=== PATIENT | male | born 1935 | race Caucasian/White ===

== ENCOUNTER 2017-01-08 12:16 | Inpatient (IN) ==
[2017-01-08 14:17] LABS: URINE CULTURE NEEDED? NO; URINE SOURCE CLEAN CATCH
[2017-01-08 14:33] LABS: BASO% 0.1 % (0.0-0.8); HEMATOCRIT 38.4 % (42.0-52.0); HEMOGLOBIN 13.4 g/dL (14.0-18.0); IMM GRAN# 0.02 X1000 (0.0-0.04); IMM GRAN% 0.1 % (0.0-0.5); LYMPH# 0.38 X1000 (1.2-3.4); LYMPH% 2.5 % (20.5-51.1); MANUAL DIFF NEEDED? NO; MCH 32.2 PG (27-31); MCHC 34.9 g/dL (33-37); MCV 92.3 FL (81-99); MONO# 1.06 X1000 (0.11-0.59); MONO% 7.1 % (1.7-9.3); MPV 11.6 FL (7.4-10.4); NEUT% 90.2 % (42.2-75.2); PLT 86 X1000 (130-400); RBC 4.16 XMIL (4.7-6.1)
[2017-01-08 14:34] LABS: BILIRUBIN URINE LARGE (NEGATIVE); BLOOD URINE SMALL (NEGATIVE); COLOR ORANGE; GLUCOSE URINE NEGATIVE (NEGATIVE); LEUKOCYTES URINE NEGATIVE (NEGATIVE); NITRITE URINE NEGATIVE (NEGATIVE); PROTEIN URINE 70 mg/dL (NEGATIVE); SP GRAVITY URINE 1.027; TURBIDITY URINE HAZY (CLEAR); UROBILINOGEN URINE 3 mg/dL (NORMAL)
[2017-01-08 14:35] LABS: URINE MICRO REVIEW NEEDED? YES
[2017-01-08 14:39] LABS: UR EPITHELIAL CELLS <10 /HPF (<10); URINE BACTERIA NEGATIVE /HPF; URINE RBC <10 /HPF (<10); URINE WBC <10 /HPF (<10)
[2017-01-08 14:48] LABS: AGAP 15; ALKALINE PHOSPHATASE 305 U/L (32-122); AMYLASE 73 U/L (20-200); BUN 22 mg/dL (8-22); CALCIUM 8.6 mg/dL (8.8-10.2); CHLORIDE 101 mmol/L (98-107); COSMO 279; GOT 86 U/L (10-34); GPT 83 U/L (10-44); LIPASE 191 U/L (13-60); POTASSIUM 3.9 mmol/L (3.5-5.1); SODIUM 138 mmol/L (136-145); TCO2 22 mmol/L (25-35); TOTAL BILIRUBIN 10.69 mg/dL (0.20-1.00); TOTAL PROTEIN 6.3 g/dL (6.3-8.3)
[2017-01-08 14:54] LABS: URINE CASTS NONE SEEN; URINE CRYSTALS NONE SEEN; URINE SMALL ROUND CELLS NONE SEEN
--- NOTE | 2017-01-08 15:49 | Diag Imaging Result Doc PS360 ---
CT ABD/PELVIS W/ IV CONT ONLY - 01/08/2017 INDICATION: jaundice, flank pain, hx liver CA TECHNIQUE: A CT dose reduction protocol was used. COMPARISON: Ultrasound from 06/01/2012 FINDINGS: There is extensive linear atelectasis or scarring in the lung bases. There is also significant bronchiectasis in the lung bases most notably in the right lower lobe. There is a small hiatal hernia. There is extremely extensive calcification of the mitral valve annulus. Heart size is top normal. The liver is extremely atrophic with a very nodular contour suggesting cirrhosis. At the lateral surface of the right lobe superficially in the liver, there is a hypoenhancing masslike area measuring 3.2 x 1.5 cm. There are several heterogeneous densities in the gallbladder that are nonspecific. Some of these are calcified and some almost appear as enhancing soft tissue. There is moderate dilation of the common bile duct. There are some similar appearing dense objects in the distal common bile duct. Spleen size is slightly enlarged measuring 13.1 x 7 cm. The pancreas is atrophic. The kidneys and adrenals are normal. There is a small ventral hernia at the umbilicus containing some nonobstructed loops of small bowel. There are some surgical suture lines at the proximal transverse colon. There are some scattered diverticula of the sigmoid colon. No bowel obstruction or inflammation. There is a small amount of ascites. Urinary bladder, prostate, and rectum are normal. Advanced degenerative changes of the bones. There is a chronic fracture/deformity of L4. There is now much compression here. There is mild compression deformity of L3. No suspicious bony lesions. IMPRESSION: 1. Advanced cirrhosis. Small liver mass, nonspecific. 2. Multiple large densities in the gallbladder compatible with gallstones. 3. Large stones in the distal common bile duct with moderate dilation of the common bile duct. 4. Splenomegaly. Small amount of ascites. 5. Umbilical ventral hernia containing nonobstructed small bowel. 6. Diverticulosis coli. Electronically signed by Sang Monroe 01/08/2017 3:47 PM
[2017-01-08] MEDS ORDERED: MORPHINE IV ONE (16:02)
[2017-01-08] MEDS ORDERED: LEVAQUIN 750 MG/D5W 750 MG/150 ML IVPB IV ONE (16:10)
--- NOTE | 2017-01-08 16:21 | PROVIDER DOCUMENTATION ---
This chart was entered by Seema Lombardo Scribe, acting as scribe for Yunier Hughes MD. HPI-General Adult - General Chief Complaint: Flank Pain Stated Complaint: fever/kidney stones Time Seen by Provider: 01/08/17 13:10 Source: patient Allergies/Adverse Reactions: Patient Allergies Allergy/AdvReac Type Severity Reaction Status Date / Time Penicillins Allergy RASH Verified 01/08/17 13:04 Sulfa (Sulfonamide Allergy Unknown Verified 01/08/17 13:04 Antibiotics) Home Medications: Home Medication List Medication Instructions Recorded Confirmed Last Taken Type Furosemide [Lasix] 20 mg PO DAILY 01/08/17 01/08/17 01/06/17 06:00 History LISINOpril [Prinivil] 20 mg PO DAILY 01/08/17 01/08/17 01/07/17 06:00 History - History of Present Illness -Gen Adult Nature of Presenting Problems: Pt is a 81 yom who came to the ED with a cc of right flank pain. Pt reports that yesterday he was in [place] watching his grandsons graduation, when he stood up he had right flank pain. Pt reports he and his went to sleep and woke up still having flank pain. Pt the reports they drove home and went to see Dr. Barr. The pt reports that Dr. Barr told him he probably has kidney stones and scheduled him for a CT at 1:30 today. The pt reports that Dr. Barr told him if his fever spikes go straight to the ED. Pt has a hx of colon cancer and liver cancer. Location of Pain/Injury: reports: other (right flank) Pain Radiation: reports: no radiation Quality of Pain: reports: sharp Severity: reports: mild Onset/Duration: reports: 24 hours ago Timing: reports: still present Context/Activities at Onset: reports: none Modifying Factors: improves with: nothing Associated Symptoms: reports: denies symptoms Similar Symptoms Previously?: No Recently seen or treated by another doctor?: Yes Review of Systems - Adult - REVIEW OF SYSTEMS - ADULT Constitutional: reports: chills, fever. denies: fatique, weight loss Eyes: reports: no symptoms reported Ears, Nose, Mouth & Throat: denies: sinus problem, mouth/dental pain Cardiovascular: reports: no symptoms reported Respiratory: reports: no symptoms reported Gastrointestinal: reports: no symptoms reported Genitourinary: reports: flank pain (right), hematuria. denies: discharge, hesitency, urgency Musculoskeletal: denies: bone pain, neck pain Integumentary: reports: no symptoms reported Neurological: reports: no symptoms reported Psychiatric: reports: no symptoms reported Endocrine: reports: no symptoms reported Hematologic/Lymphatic: reports: no symptoms reported Allergic/Immunologic: reports: no symptoms reported All Other Systems: Reviewed and Negative Past History - Adult - PAST MEDICAL HISTORY-ADULT Review of Records: reports: Nursing Assessment Review Major Childhood Illnesses: reports: denies history Cardiovascular: reports: HTN Respiratory: reports: denies history Gastrointestinal: reports: denies history Obstetrical/Gynecological: reports: denies history Genitourinary: reports: denies history Musculoskeletal: reports: denies history Neurological: reports: denies history Endocrine/Immune: reports: denies history Other Conditions: reports: denies history - PRIOR SURGERIES/PROCEDURES Surgical/Procedure History: reports: colonoscopy - IMMUNIZATION STATUS Childhood Immunizations: See Nurse Assessment Flu Vaccine: See Nurse Assessment - FAMILY HISTORY Family History: reviewed, not pertinent Physical Exam-General - PHYSICAL EXAM-ADULT Initial Vital Signs Reviewed: Yes - CONSTITUTIONAL General Appearance: appears well, alert, no apparent distress - EYES Eyes: PERRL/EOMI, pink conjunctivae - HEAD, EARS, NOSE, MOUTH & THROAT HENMT: normocephalic/atraumatic, moist mucous membranes - NECK Neck: non-tender, full range of motion - RESPIRATORY Respiratory: chest non-tender, lungs clear, normal breath sounds - CARDIOVASCULAR Cardiovascular: normal peripheral pulses, systolic murmur (2/6) - GASTROINTESTINAL (ABDOMEN) Abdominal Exam: normal bowel sounds, non tender, soft - MUSCULOSKELETAL Back Exam: normal inspection, other (right flank pain) Extremity: normal range of motion, non-tender - SKIN Integumentary: warm/dry, jaundice (eyes) - NEUROLOGIC Neurologic: grossly normal - PSYCHIATRIC Psych/Mental Status: normal mood/affect, normal thought content, normal thought process, oriented x 3 Progress - PLAN OF CARE/RESULTS Progress/Plan/Lab Results: Vital Signs - 8 hr 01/08/17 12:35 Temperature 99.1 F Pulse Rate 98 H Respiratory Rate 22 Blood Pressure 113/63 O2 Sat by Pulse Oximetry 98 Result Diagrams: 01/08/17 14:01/08/17 14:05 - CONSULTS/PCP/HOSPITALIST Notification Time Discussed: 16:10 Consult Disposition: Admit Departure - Departure Time of Disposition Decision: 16:19 DIAGNOSIS: Choledocholithiasis with acute cholecystitis with obstruction Disposition: HOME 01 Certified Medical Emergency: Emergent Condition: Stable - Critical Care Note This patient required my direct & personal management of CC.: No This chart was documented by the indicated scribe, (Seema Lombardo Scribe) and accurately reflects the services I performed and decisions made by me, Yunier Hughes MD, as attested by the provider's signature.
[2017-01-08] MEDS ORDERED: TYLENOL PO PRN (17:03)
[2017-01-08] MEDS ORDERED: ZOFRAN IV PRN (17:03)
[2017-01-08 17:48] LABS: DIRECT BILIRUBIN 9.1 mg/dL (0.00-0.20)
--- NOTE | 2017-01-08 18:30 | HISTORY AND PHYSICAL ---
PCP: Dr. Barr. GI: Is Dr. Sen in [place]. PRESENTING COMPLAINT: Abdominal pain, fever and chills. HISTORY OF PRESENTING COMPLAINT: Mr. Griffin is a 81-year-old male with a history of cirrhosis of the liver, colon cancer and hypertension who started having some abdominal right upper quadrant to the back pain since yesterday initiated without any precipitating factor and then progressively just got worse to the point where he was not able to do anything because of excruciating intermittent pain 10/10 associated with some nausea. No vomiting. The patient went to see Dr. Barr yesterday and was given some pain medication and was told to come to the emergency department if his condition does not get any better. This morning he woke up and the pain got even worse so the decided to bring him to the emergency department. Now before they came according to the the patient was just shaking like chills. She checked the temperature. Initially it was 100.6. She rechecked it about 30 minutes later it was 101.6 and the 3rd time it was 102.8. That is when she decided to bring him to the emergency department. Upon presentation patient was evaluated, was found to have a white count of 14.96. A CT scan of the abdomen was done which showed advanced cirrhosis, large stones in the distal common bile duct with moderate dilation of the common bile duct. PAST MEDICAL HISTORY: 1. Hypertension. 2. History of heart murmur. 3. Cirrhosis. 4. HCC status post embolization. 5. Umbilical hernia. PAST SURGICAL HISTORY: 1. Colon cancer removal with primary anastomosis. 2. Embolization of HCC. ALLERGIES: Sulfa and questionable penicillins. HOME MEDICATIONS: Include. 1. Furosemide 20 mg daily. 2. Lisinopril 20 mg daily. FAMILY HISTORY: Noncontributory. SOCIAL HISTORY: Patient used to smoke couple years back, stopped smoking in 1954, also used to drink about 4-5 beers on daily basis, stopped about 10 years ago. That was after he got the diagnosis of cirrhosis. Currently lives with the . Denies any recreational drug use. REVIEW OF SYSTEMS: Fourteen point review of system conducted with the patient is unremarkable. Specifically patient denies any chest pain, short of breath. No diarrhea. The patient also denies any loss of weight and no changes in his appetite and no bowel movement changes. PHYSICAL EXAM: VITAL SIGNS: Blood pressure is 113/63, pulse of 98, respirations 22, temperature is 99.1 degrees. GENERAL: Mr. Griffin is a 81-year-old male. He is in bed. He is not in any remarkable distress. HEENT: Head is normocephalic and atraumatic. Neck is supple. I did not appreciate any JVD or no carotid bruit. Mucosa is pink and 2+ icteric. CHEST: Good air entry bilateral. No crepitations. No rhonchi. CARDIOVASCULAR: Regular rate and rhythm. There is about 2 to 3/6 murmur radiating to the carotid. ABDOMEN: Soft. Mildly tender in the right upper quadrant. Bowel sounds are present. There is an umbilical hernia defect noted and an old supraumbilical surgical scar consistent with previous GI surgery. EXTREMITIES: No pedal edema. PROJECT SCIENTIST: Patient is alert, is oriented x4. There is no focal neurological deficit. Sensation is intact. Motor is 5/5 in all extremities. Cranial nerves 2-12 are grossly examined and unremarkable. PSYCH: Patient has a very good demeanor, great insight and judgment. LABORATORY DATA: WBC is 14.96, hemoglobin is 13.4, platelet count of 86,000. Chemistry is reviewed. Sodium is 138, potassium is 3.9, chloride is 101, bicarb is 22, calcium is 8.6, total bilirubin is 10.69, AST is 86, ALT is 85, alkaline phosphatase 305, lipase is 191. A CT scan of the abdomen and pelvis was done that shows advanced cirrhosis. Multiple large densities in the gallbladder consistent with gallstones. There is advanced cirrhosis, small liver mass nonspecific. ASSESSMENT: Mr. Griffin is a 81-year-old male with past medical history of multiple comorbidities including advanced cirrhosis and hypertension, recent history of colon cancer who presents with right upper quadrant abdomen to chest pain and fever and chills found to be in obstructive jaundice. 1. Ascending cholangitis. Patient has an obstructive pattern of jaundice, febrile at home and is hurting which is all consistent with Charcot's Triad. Would cover him with broad- spectrum antibiotics (carbapenems). 2. Gallstone induced pancreatitis. We are going to adequately hydrate the patient, control the pain, get both surgery and GI to evaluate the patient. 3. Advanced cirrhosis with splenomegaly and thrombocytopenia noted. 4. Cholelithiasis with choledocholithiasis. 5. History of hepatocellular carcinoma. CT scan shows some small masses in the liver possibly the same hepatocellular carcinoma. 6. Hypertension. 7. Small umbilical hernia. PLAN: So in general I think Mr. Griffin is sick but looks stable. He is not febrile anymore but does have a mild white count. We are going to put him on a carbapenem to cover for possible all the gram negatives and possible ESBL as well. Will admit him to medical floor with telemetry, put him on lactate for baseline hydration at a rate of 100 mL/h at least for the 1st 24 hours. Keep in mind the patient has cirrhosis, we do not want to overflow him., Control his pain and get Dr. Carvajal the surgeon to evaluate the patient. The patient and the have specifically requested Dr. Carvajal and will also get Dr. Goins who is balloon design printer for GI to see the patient. CRITICAL TIME SPENT: 45 minutes. cc: Yonatan Patel MD MTDD
--- NOTE | 2017-01-08 19:22 | Diag Imaging Result Doc PS360 ---
US ABDOMEN-COMPLETE - 01/08/2017 INDICATION: choledocholithiasis COMPARISON: CT from 01/08/2017 FINDINGS: There is severe cirrhosis. There is splenomegaly. There are numerous large stones in the gallbladder. The biliary collecting system is obscured. The pancreas is obscured. The kidneys are grossly normal. There is a small amount of ascites. IMPRESSION: No additional findings. Electronically signed by Sang Monroe 01/08/2017 7:19 PM
[2017-01-08] MEDS ORDERED: PROTONIX IV ONE (19:41)
[2017-01-08] MEDS ORDERED: SODIUM CHLORIDE 0.9% INJ ONE (19:41)
[2017-01-08] MEDS: NS 1,000 ML IV SCH (20:48)
[2017-01-08] MEDS: MERREM 1 GM in NS 50 ML IV SCH (20:49)
[2017-01-09] MEDS ORDERED: NON-FORMULARY MED PR SCH (00:15)
[2017-01-09] MEDS: NON-FORMULARY MED PR SCH ×2 (00:55→06:47)
[2017-01-09] MEDS: NS 1,000 ML IV SCH (03:33)
[2017-01-09] MEDS: MERREM 1 GM in NS 50 ML IV SCH ×2 (04:35→12:31)
[2017-01-09 05:52] LABS: INR 1.38; PROTIME 14.8 Seconds (9.2-11.7)
[2017-01-09 06:20] LABS: AGAP 13; ALBUMIN 2.8 g/dL (3.5-5.0); ALKALINE PHOSPHATASE 265 U/L (32-122); BUN 22 mg/dL (8-22); CALCIUM 8.5 mg/dL (8.8-10.2); CHLORIDE 104 mmol/L (98-107); COSMO 283; GOT 113 U/L (10-34); GPT 94 U/L (10-44); POTASSIUM 4.6 mmol/L (3.5-5.1); SODIUM 140 mmol/L (136-145); TCO2 23 mmol/L (25-35); TOTAL BILIRUBIN 11.77 mg/dL (0.20-1.00); TOTAL PROTEIN 5.9 g/dL (6.3-8.3)
[2017-01-09 06:46] LABS: HEMOGLOBIN 13.1 g/dL (14.0-18.0); LYMPH# 0.35 X1000 (1.2-3.4); LYMPH% 3.5 % (20.5-51.1); MANUAL DIFF NEEDED? YES; MCH 31.9 PG (27-31); MCHC 34.5 g/dL (33-37); MCV 92.5 FL (81-99); MONO# 0.42 X1000 (0.11-0.59); MONO% 4.2 % (1.7-9.3); MPV 11.2 FL (7.4-10.4); NEUT% 92.3 % (42.2-75.2); PLT 68 X1000 (130-400); RBC 4.11 XMIL (4.7-6.1)
[2017-01-09 07:11] LABS: BANDS 6 % (0-1); MONO 4 % (1-9)
[2017-01-09 09:26] LABS: INR 1.43; PROTIME 15.4 Seconds (9.2-11.7); PTT 31.7 Seconds (22.0-36.0)
--- NOTE | 2017-01-09 09:26 | Diag Imaging Result Doc PS360 ---
CHEST-PORTABLE - 01/09/2017 INDICATION: BLOOD LOSS TECHNIQUE: COMPARISON: None FINDINGS: Lung volumes are low with some patchy atelectasis in the bases. No infiltrates or effusions. Heart size is normal. IMPRESSION: No specific acute disease. Electronically signed by Sang Monroe 01/09/2017 9:23 AM
[2017-01-09 12:44] VITALS: BP 118/73
--- NOTE | 2017-01-09 16:00 | DISCHARGE SUMMARY ---
ADMISSION DATE: 01/08/2017 DISCHARGE DATE: 01/09/2017 DISPOSITION: Gastroenterology unit in [place], bed [id number]. ACCEPTING PHYSICIAN: Dr. Saul. CONSULTATIONS: Gastroenterology was consulted. Patient was seen by Dr. Goins. General Surgery was consulted. Patient was seen by Dr. Carvajal. INVASIVE PROCEDURES DONE: None. IMAGING STUDIES OF SIGNIFICANCE: A CT scan of the abdomen and pelvis was done that showed advanced cirrhosis, small liver mass, multiple large densities in the gallbladder compatible with gallstones, large stones in the CBD with moderate dilation of the common bile duct. An ultrasound of the abdomen was done that showed severe cirrhosis, splenomegaly, numerous large stones in the gallbladder. Biliary collecting system is obscured. DIAGNOSES: 1. Ascending cholangitis. 2. Gallstone-induced pancreatitis. 3. Advanced cirrhosis with splenomegaly and thrombocytopenia. 4. Cholelithiasis with choledocholithiasis. 5. History of hepatocellular carcinoma. 6. Hypertension. 7. Small umbilical hernia. MEDICATIONS BEFORE DISCHARGE: 1. Meropenem 1 g IV q.8. 2. Lactulose. 3. IV fluids with normal saline at 100 mL/h. PRESENTING COMPLAINT: Abdominal pain, fever, and chills. HISTORY OF PRESENTING COMPLAINT: Mr. Griffin is a 81-year-old male with multiple comorbidities, including cirrhosis with HCC, hypertension, and colon cancer, who presented to the emergency department because of a 1-day history of abdominal pain, fever, and chills. On presentation, patient was evaluated and was found to have a blood pressure of 113/63. The patient did say he had a temperature of a 102.8 degrees at one point at home, associated with chills. Initial evaluation did show a WBC of 14.93, hemoglobin 13.4, and platelet count of 86,000. The chemistry did show a total bilirubin of 10.69, AST was 86, ALT was 83, alkaline phosphatase was 305. A CT scan of the abdomen and pelvis was as dictated above. The patient was admitted for ascending cholangitis. Gastroenterology and Surgery were consulted. Patient was put on IV antibiotics, gentle hydration, and was evaluated by Dr. Goins of Gastroenterology and Dr. Carvajal, General Surgery, and both of them were of the opinion that the patient has so much on board that he will need a higher level of care, and decided to transfer the patient to [place]. The accepting physician will be Dr. Saul. This has been discussed with the patient and he is in agreement. The patient will be discharged as soon as transportation has been arranged. TIME SPENT FOR DISCHARGE: Thirty-seven minutes. cc: Yonatan Patel MD
--- NOTE | 2017-01-11 07:38 | EKG Report ---
Test Performed on : 01/09/2017 10:55:34 AM Test Reason : BLOOD LOSS Blood Pressure : / mmHG Vent. Rate : 107 BPM Atrial Rate : 107 BPM P-R Int : 194 ms QRS Dur : 088 ms QT Int : 348 ms P-R-T Axes : 007 030 006 degrees QTc Int : 464 ms Sinus tachycardia. with premature atrial complexes. Cannot rule out Anterior infarct , age undetermined Abnormal ECG No previous ECGs available Confirmed by Saul SANCHEZ, Yunier Jacobson ([id number]) on 01/12/2017 8:18:50 AM
== END 2017-01-09 13:30 | disposition short-term general hospital (02) ==
LOC: ED 12:16 → 4N 17:57
PROVIDERS: ATTEND Internal Medicine